=== PATIENT | female | born 1970 | race Caucasian/White ===

== ENCOUNTER 2018-04-13 23:19 | Emergency (ER) | payer BC ==
[~2018-04-13] VITALS: Ht 157.5 cm; Wt 126.6 kg
[2018-04-13 23:32] VITALS: BP 157/88
== END 2018-04-14 01:14 | disposition home or self-care (01) ==
LOC: ER 23:19
DX: M79.671 Pain in right foot (principal); M79.89 Other specified soft tissue disorders; R20.0 Anesthesia of skin
CPT/HCPCS: 73620; 99284